=== PATIENT | male | born 1960 | race American Indian/Alaskan Native ===

== ENCOUNTER 2018-11-28 18:58 | Emergency (ER) | payer OTHER ==
--- NOTE | 2018-11-28 19:11 | Emergency Department Report ---
Blank Doc - Documentation Documentation: this is a 58-year-old male that presents with left sided facial pain with swel ling. Stated he believes its coming from the tooth. This initial assessment/diagnostic orders/clinical plan/treatment(s) is/are subject to change based on patient's health status, clinical progression and re- assessment by fellow clinical providers in the ED. Further treatment and workup at subsequent clinical providers discretion. Patient/guardians urged not to elope from the ED as their condition may be serious if not clinically assessed and managed. Initial orders include: 1- Patient sent to [facility] for further evaluation and treatment 2- labs for possible CT scan
[2018-11-28 19:58] LABS: Basophils # (Auto) 0.1 K/mm3 (0.0-0.1); Basophils % (Auto) 0.7 % (0.0-1.8); Eosinophils # (Auto) 0.1 K/mm3 (0.0-0.4); Eosinophils % (Auto) 0.9 % (0.0-4.3); Hemoglobin 13.4 gm/dl (11.8-15.2); Lymphocytes % (Auto) 11.4 % (13.4-35.0); Mean Corpuscular HGB Conc 33 % (32-34); Mean Corpuscular Volume 92 fl (84-94); Monocytes # (Auto) 0.8 K/mm3 (0.0-0.8); Platelet Count 146 K/mm3 (140-440); Red Blood Count 4.48 M/mm3 (3.65-5.03); Red Cell Distribution Width 15.2 % (13.2-15.2)
[2018-11-28 20:20] LABS: BUN/Creatinine Ratio 16; Blood Urea Nitrogen 16 mg/dL (9-20); Calcium 8.5 mg/dL (8.4-10.2); Hemolysis Index 4
[2018-11-28] MEDS ORDERED: IBUPROFEN PO ONE (22:52)
[2018-11-28] MEDS ORDERED: TRIMOX PO ONE (22:52)
[2018-11-28] MEDS ORDERED: ULTRAM PO ONE (22:52)
--- NOTE | 2018-11-28 22:56 | Emergency Department Report ---
Abscess Boil HPI - HPI Chief Complaint: Skin/Abscess/Foreign Body Stated Complaint: TOOTHACHE/L SIDE FACE SWOLLEN Time Seen by Provider: 11/28/18 19:10 Duration: 2 Days Location: Other (left sides) History: Yes Pain, No Fever, No Purulent Drainage, No Numbness, No Foreign Body, No Previous History, No Insect Bite HPI: 58-year-old -[place] male reports to the emergency room stating he has a toothache that started 2 days ago in left side facial swelling. Patient reports he is taking nothing for pain. He has not seen a dentist in over 5 years. Patient denies any fever or chills or nausea no vomiting. Home Medications: Previous Rx's Medication Instructions Recorded Last Taken Type Amoxicillin [Trimox CAP] 500 mg PO Q8H #30 capsule 11/28/18 Unknown Rx Ibuprofen [Motrin 600 MG tab] 600 mg PO Q8H #15 tablet 11/28/18 Unknown Rx Allergies/Adverse Reactions: Allergies Allergy/AdvReac Type Severity Reaction Status Date / Time No Known Allergies Allergy Unverified 11/28/18 19:06 ED Review of Systems ROS: Stated complaint: TOOTHACHE/L SIDE FACE SWOLLEN Other details as noted in HPI Comment: All other systems reviewed and negative ENT: dental pain Skin: other (swelling of face) ED Past Medical Hx - Medications Home Medications: Home Medications Medication Instructions Recorded Confirmed Last Taken Type Amoxicillin [Trimox CAP] 500 mg PO Q8H #30 capsule 11/28/18 Unknown Rx Ibuprofen [Motrin 600 MG tab] 600 mg PO Q8H #15 tablet 11/28/18 Unknown Rx ED Abscess Boil Physical Exam - Exam General: Vital signs noted. No distress. Alert and acting appropriately. Size: 3 cm Exam: Yes Tenderness, No Fluctuance Exam: Dental exam: Second molars are decayed down to the gumline with mild gingiva enlargement. Multiple dental caries. Poor dental care. Uvula is midline oropharynx patent non-erythematous non-edematous no exudate appreciated. Critical care attestation.: If time is entered above; I have spent that time in minutes in the direct care of this critically ill patient, excluding procedure time. ED Medical Decision Making - Lab Data Result diagrams: 11/28/18 19:33 11/28/18 19:33 - Medical Decision Making Patient has been evaluated by this provider and [facility]. Patient will be given tramadol 50 mg ibuprofen 600 mg and amoxicillin 500 mg while in [facility]. Patient will be discharged home on ibuprofen 600 mg every 8 hours and amoxicillin 500 mg every 8 hours for 10 days patient be referred to dentistry. ED Disposition Clinical Impression: Dental abscess, Facial abscess Disposition: TO HOME OR SELFCARE Is pt being admited?: No Does the pt Need Aspirin: No Condition: Stable Instructions: Dental Abscess (ED), Abscess (ED) Additional Instructions: Please complete antibiotics as prescribed. Pain medication as needed and follow-up with a dentist and primary care provider. I have listed information below for your convenience Prescriptions: Ibuprofen [Motrin 600 MG tab] 600 mg PO Q8H #15 tablet Amoxicillin [Trimox CAP] 500 mg PO Q8H #30 capsule Referrals: TRESSA AIKEN MD [Primary Care Provider] - 3-5 Days [facility] [Outside] - 3-5 Days [facility] [Outside] - 3-5 Days [facility] [Outside] - 3-5 Days
[2018-11-28 23:17] VITALS: BP 136/94
== END 2018-11-28 23:17 | disposition home or self-care (01) ==
LOC: ED 18:58
DX: K04.7 Periapical abscess without sinus (principal); L02.01 Cutaneous abscess of face
CPT/HCPCS: 36415; 80048; 85025